=== PATIENT | female | born 1995 | race Caucasian/White ===

== ENCOUNTER 2018-01-26 07:26 | Inpatient (IN) | payer OTHER, MEDICAID ==
[~2018-01-26] VITALS: Ht 152.4 cm; Wt 73.9 kg
[2018-01-30] MEDS: LACTATED RINGERS 1,000 ML IV SCH ×2 (06:10→06:59)
[2018-01-30] MEDS ORDERED: DEXT 5%/LR + PITOCIN 20UNITS/L 1,000 ML IV SCH ×2 (06:17→10:16)
[2018-01-30] MEDS ORDERED: CARBOPROST TROMETHAMINE 250 MCG/ML AMPUL IM PRN (06:30)
[2018-01-30] MEDS ORDERED: METHYLERGONOVINE MALEATE 0.2 MG/ML IM PRN (06:30)
[2018-01-30 06:54] LABS: BASOPHILS % 0.4 % (0.0-2.0); CLARITY URINE CLOUDY (CLEAR); COLOR URINE YELLOW (YELLOW); EOSINOPHILS % 1.1 % (0.0-5.0); HEMATOCRIT. 38.3 % (36.0-48.0); HEMOGLOBIN. 13.2 g/dL (12.0-16.0); KETONES URINE NEGATIVE (NEGATIVE); LEUKOCYTE ESTERASE URINE 2+ (NEGATIVE); LYMPHOCYTES % 23.1 % (20.0-50.0); MEAN CORPUSCULAR HEMOGLOBIN 31.8 pg (28.0-32.0); MEAN CORPUSCULAR VOLUME 92.1 fL (81.0-99.0); MEAN PLATELET VOLUME 11.1 fl (7.4-10.4); MONOCYTES % 10.2 % (2.0-8.0); NEUTROPHILS % 65.2 % (40.0-76.0); NITRITE URINE NEGATIVE (NEGATIVE); OCCULT BLOOD URINE TRACE (NEGATIVE); PH URINE 6.5 (4.5-8.0); PLATELET 110 x1000/uL (130-400); PROTEIN URINE 3+ (NEGATIVE); RED BLOOD CELL COUNT 4.16 mill/uL (4.2-5.4); RED CELL DISTRIBUTION WIDTH 15.8 % (11.6-14.6); SPECIFIC GRAVITY URINE 1.018 (1.005-1.030); UROBILINOGEN URINE 0.2 E.U./dL (0.2-1.0)
[2018-01-30 07:00] LABS: PROTHROMBIN TIME 9.7 sec (9.1-11.1)
[2018-01-30] MEDS ORDERED: CITRIC ACID/SODIUM CITRATE SOLN 30ML UDC PO NR (07:00)
[2018-01-30] MEDS ORDERED: MAGNESIUM 20 G PREMIX (L & D) 500 ML IV SCH ×2 (07:06→11:30)
[2018-01-30] MEDS ORDERED: PNV1TABL76 MT (07:07)
[2018-01-30 07:08] LABS: *AMPHETAMINES SCREEN URINE NEGATIVE (NEGATIVE); *BARBITURATES SCREEN URINE NEGATIVE (NEGATIVE)
[2018-01-30 07:09] LABS: *BENZODIAZEPINES SCREEN URINE NEGATIVE (NEGATIVE); *COCAINE SCREEN URINE NEGATIVE (NEGATIVE); CANNABINOID URINE SCREEN NEGATIVE (NEGATIVE); METHADONE URINE SCREEN NEGATIVE (NEGATIVE); OPIATES URINE SCREEN NEGATIVE (NEGATIVE); PHENCYCLIDINE URINE SCREEN NEGATIVE (NEGATIVE)
[2018-01-30] MEDS ORDERED: EPHEDRINE SULFATE 50MG/ML VIAL ONE (07:14)
[2018-01-30] MEDS ORDERED: BUPIVACAINE HCL/DEXTROSE/PF 0.75% 2ML AMP INJ ONE (07:14)
[2018-01-30] MEDS ORDERED: GLYCOPYRROLATE 0.2 MG/ML 2ML VIAL ONE (07:14)
[2018-01-30] MEDS ORDERED: CEFAZOLIN 2000MG PREMIX 50 ML IV ONE (07:14)
[2018-01-30] MEDS ORDERED: OXYTOCIN 10 UNITS/ML 1ML ONE (07:14)
[2018-01-30] MEDS ORDERED: ONDANSETRON HCL 4MG/2ML INJ ONE ×2 (07:14→20:54)
[2018-01-30] MEDS ORDERED: PHENYLEPHRINE HCL 10 MG/ML 1ML (IV VIAL) IV ONE (07:14)
[2018-01-30] MEDS ORDERED: MAGNESIUM 2 G PREMIX 50 ML IV SCH (07:15)
[2018-01-30] MEDS ORDERED: MAGNESIUM 4 G PREMIX 100 ML IV SCH (07:15)
[2018-01-30] MEDS ORDERED: FENTANYL CITRATE/PF 50MCG/ML 2ML VIAL ONE (07:17)
[2018-01-30] MEDS ORDERED: MORPHINE SULFATE/PF 1MG/ML 10ML AMP ONE (07:17)
[2018-01-30 07:26] LABS: CHLORIDE 111 mEq/L (98-107)
[2018-01-30 07:35] LABS: D-DIMER 1.62 mg/L FEU (<0.50)
[2018-01-30 07:45] LABS: RUBELLA IGG 10.7 IU/mL (4.99-10)
[2018-01-30 07:46] LABS: HEPATITIS B SURFACE ANTIGEN NEGATIVE
[2018-01-30] MEDS ORDERED: DIPHENHYDRAMINE 50MG/ML VIAL ONE (10:16)
[2018-01-30] MEDS ORDERED: BUTORPHANOL TARTRATE 2 MG/ML VIAL IV PRN (10:30)
[2018-01-30] MEDS ORDERED: BISACODYL 10MG SUPP PR PRN (10:30)
[2018-01-30] MEDS ORDERED: DIPHENHYDRAMINE 50MG/ML VIAL IV PRN (10:30)
[2018-01-30] MEDS ORDERED: HEMORRHOIDAL SUPP PR PRN (10:30)
[2018-01-30] MEDS ORDERED: ONDANSETRON HCL 4MG/2ML INJ IV PRN (10:30)
[2018-01-30] MEDS ORDERED: BUTORPHANOL TARTRATE 2 MG/ML VIAL IM PRN (10:30)
[2018-01-30] MEDS ORDERED: TETANUS, DIPHTHERIA, PERTUSSIS VAC/PF 0.5ML (>7YR OLD) IM ONE (10:30)
[2018-01-30] MEDS ORDERED: HYDROCODONE/ACETAMINOPHEN 5/325MG TABLET PO PRN (10:30)
[2018-01-30] MEDS ORDERED: DIPHENHYDRAMINE 25MG CAPSULE PO PRN (10:30)
[2018-01-30] MEDS ORDERED: NALOXONE HCL 0.4 MG/ML 1ML VIAL IV PRN (10:30)
[2018-01-30] MEDS ORDERED: LANOLIN OINT 0.25 GM TUBE TOP PRN (10:30)
[2018-01-30] MEDS ORDERED: INFLUENZA VIRUS VACCINE 0.5ML SYR IM ONE (10:30)
[2018-01-30 11:45] VITALS: BP 149/89
[2018-01-30] MEDS: MAGNESIUM/ALUMINUM HYDROXIDE/SIMETHICONE 30ML UDC PO SCH (12:10)
[2018-01-30 12:15] VITALS: BP 145/94
[2018-01-30] MEDS: SIMETHICONE 80MG TABLET CHEW PO SCH (12:40)
[2018-01-30 16:00] VITALS: BP 155/82
[2018-01-30 20:00] VITALS: BP 141/86
[2018-01-30] MEDS ORDERED: SUCCINYLCHOLINE CHLORIDE 200MG/10ML VIAL IV ONE (20:21)
[2018-01-30] MEDS: DOCUSATE SODIUM 100MG CAPSULE PO SCH (20:23)
[2018-01-30] MEDS: KETOROLAC 30MG/ML VIAL IV PRN (21:52)
[2018-01-30 22:00] VITALS: BP 135/83
[2018-01-31] VITALS (7 sets, daily range): BP systolic 127–144; BP diastolic 80–86
[2018-01-31] MEDS: MAGNESIUM/ALUMINUM HYDROXIDE/SIMETHICONE 30ML UDC PO SCH ×4 (08:17→21:27)
[2018-01-31] MEDS: SIMETHICONE 80MG TABLET CHEW PO SCH ×4 (08:18→21:27)
[2018-01-31] MEDS: KETOROLAC 30MG/ML VIAL IV PRN (08:18)
[2018-01-31] MEDS: PRENATAL VIT/FE FUMARATE/FA TABLET PO SCH (08:18)
[2018-01-31 09:03] LABS: BASOPHILS % 0.1 % (0.0-2.0); EOSINOPHILS % 0.4 % (0.0-5.0); HEMATOCRIT. 35.8 % (36.0-48.0); HEMOGLOBIN. 12.1 g/dL (12.0-16.0); LYMPHOCYTES % 10.3 % (20.0-50.0); MEAN CORPUSCULAR HEMOGLOBIN 31.6 pg (28.0-32.0); MEAN CORPUSCULAR VOLUME 93.7 fL (81.0-99.0); MEAN PLATELET VOLUME 10.7 fl (7.4-10.4); MONOCYTES % 10.2 % (2.0-8.0); PLATELET 100 x1000/uL (130-400); RED BLOOD CELL COUNT 3.82 mill/uL (4.2-5.4); RED CELL DISTRIBUTION WIDTH 15.9 % (11.6-14.6)
[2018-01-31] MEDS: FERROUS SULFATE 325MG TABLET PO SCH ×2 (12:21→17:22)
[2018-01-31] MEDS: HYDROCODONE/ACETAMINOPHEN 5/325MG TABLET PO PRN (12:34)
[2018-01-31] MEDS: IBUPROFEN 400MG TABLET PO PRN (17:22)
[2018-01-31] MEDS: DOCUSATE SODIUM 100MG CAPSULE PO SCH (21:27)
[2018-02-01] MEDS: HYDROCODONE/ACETAMINOPHEN 5/325MG TABLET PO PRN ×5 (05:03→22:40)
[2018-02-01 06:00] VITALS: BP 157/94
[2018-02-01 08:15] VITALS: BP 158/85
[2018-02-01] MEDS: MAGNESIUM/ALUMINUM HYDROXIDE/SIMETHICONE 30ML UDC PO SCH ×4 (08:54→21:16)
[2018-02-01] MEDS: SIMETHICONE 80MG TABLET CHEW PO SCH ×4 (08:54→21:15)
[2018-02-01] MEDS: PRENATAL VIT/FE FUMARATE/FA TABLET PO SCH (08:55)
[2018-02-01] MEDS: FERROUS SULFATE 325MG TABLET PO SCH ×3 (08:55→17:53)
[2018-02-01 15:47] VITALS: BP 137/68
[2018-02-01 21:00] VITALS: BP 154/93
[2018-02-01] MEDS: DOCUSATE SODIUM 100MG CAPSULE PO SCH (21:16)
[2018-02-02] MEDS: HYDROCODONE/ACETAMINOPHEN 5/325MG TABLET PO PRN (04:43)
[2018-02-02 05:00] VITALS: BP 145/96
[2018-02-02] MEDS ORDERED: TETANUS, DIPHTHERIA, PERTUSSIS VAC/PF 0.5ML (>7YR OLD) IM ONE (06:00)
[2018-02-02 08:00] VITALS: BP 160/113
[2018-02-02] MEDS ORDERED: LABETALOL HCL 200MG TABLET PO SCH (09:45)
[2018-02-02] MEDS: MAGNESIUM/ALUMINUM HYDROXIDE/SIMETHICONE 30ML UDC PO SCH (09:55)
[2018-02-02] MEDS: SIMETHICONE 80MG TABLET CHEW PO SCH (09:55)
[2018-02-02] MEDS: PRENATAL VIT/FE FUMARATE/FA TABLET PO SCH (09:55)
[2018-02-02] MEDS: FERROUS SULFATE 325MG TABLET PO SCH (09:55)
[2018-02-02] MEDS: IBUPROFEN 400MG TABLET PO PRN (10:17)
[2018-02-02 11:19] VITALS: BP 173/93
[2018-02-02 13:03] VITALS: BP 148/88
== END 2018-02-02 12:45 | disposition home or self-care (01) | DRG 766 ==
LOC: L&D 01-30 05:53 → OBSVTOIN 01-30 05:53 → 7EST PP/OB 01-30 18:42
PROVIDERS: ADMIT Specialist; ATTEND Specialist
PROC: 10D00Z1 Extraction of Products of Conception, Low, Open Approach (ICD-10-PCS; principal; 2018-01-30 09:48)
DX: O34.219 Maternal care for unspecified type scar from previous cesarean delivery (principal); O13.4 Gestational [pregnancy-induced] hypertension without significant proteinuria, complicating childbirth; Z3A.39 39 weeks gestation of pregnancy; Z37.0 Single live birth; Z82.3 Family history of stroke; Z82.49 Family history of ischemic heart disease and other diseases of the circulatory system; Z86.59 Personal history of other mental and behavioral disorders
CPT/HCPCS: 36415; 80053; 80305; 81003; 83735; 84550; 85025; 85379; 85384; 85610; 85730; 86592; 86703; 86762; 86850; 86900; 86920; 87086; 87340; 88307; 90686; 90715; J0330; J0595; J0690; J1200; J1885; J2274; J2370; J2405; J2590; J3010; J3475; J3490; J7120